=== PATIENT | male | born 1980 | race Caucasian/White ===

== ENCOUNTER 2021-05-30 16:34 | Inpatient (IN) | payer OTHER ==
[~2021-05-30] VITALS: Ht 172.7 cm; Wt 77.5 kg
[2021-05-30 18:13] LABS: BASOPHILS % (AUTO) 0.7 % (0.0-2.0); EOSINOPHILS % (AUTO) 2.6 % (1.0-6.0); HEMATOCRIT 44.1 % (41-53); HEMOGLOBIN 14.9 g/dL (13.5-17.5); LYMPHOCYTES # (AUTO) 2.6 K/uL (1.0-4.8); LYMPHOCYTES % (AUTO) 28.5 % (22.0-44.0); MEAN CORPUSCULAR HEMOGLOBIN 31.9 pg (26.0-34.0); MEAN CORPUSCULAR HGB CONC 33.8 G/dL (31.0-37.0); MEAN CORPUSCULAR VOLUME 94 fL (80-100); MONOCYTES # (AUTO) 0.7 K/uL (0.1-1.0); MONOCYTES % (AUTO) 7.3 % (2.0-9.0); NEUTROPHILS # (AUTO) 5.6 K/uL (1.8-7.7); NEUTROPHILS % (AUTO) 60.9 % (40.0-70.0); PLATELET COUNT (AUTO) 449 K/uL (150-450); RED BLOOD CELL COUNT(AUTO) 4.67 MIL/uL (4.50-5.90); RED CELL DISTRIBUTION WIDTH 13.6 % (11.5-14.5)
[2021-05-30 18:24] LABS: ANION GAP 6 mmol/L (8-16); CALCIUM, TOTAL 9.1 mg/dL (8.8-10.5); CARBON DIOXIDE 28 mmol/L (22-29); CHLORIDE 105 mmol/L (98-107); CREATININE 0.82 mg/dL (0.60-1.30); GLOMERULAR FILTR. RATE CALC > 60 mL/min (>60); GLUCOSE,RANDOM 99 mg/dL (70-110); POTASSIUM 3.6 mmol/L (3.5-5.1); SODIUM SERUM 139 mmol/L (136-145); UREA NITROGEN, BLOOD 12 mg/dL (7-18)
[2021-05-30 18:31] LABS: ALANINE AMINOTRANSFERASE 46 U/L (12-78); ALBUMIN 3.7 g/dL (3.4-5.0); ALKALINE PHOSPHATASE 113 U/L (46-116); ASPARTATE AMINOTRANSFERASE 19 U/L (15-37); BILIRUBIN,TOTAL 0.4 mg/dL (0.1-1.0); TOTAL PROTEIN, SERUM 8.3 g/dL (6.4-8.2)
[2021-05-30 20:26] LABS: COVID AG,FIA SOURCE NASOPHARYNGEAL
[2021-05-30] MEDS ORDERED: LORazepam 2 MG/ML VIAL IVP PRN (20:30)
[2021-05-30] MEDS ORDERED: ONDANSETRON HCL 4 MG/2 ML VIAL IVP PRN (20:30)
[2021-05-30] MEDS ORDERED: ACETAMINOPHEN 325 MG TABLET PO PRN (20:30)
[2021-05-30] MEDS ORDERED: 0.9% SODIUM CHLORIDE 10 ML SYRINGE IVP PRN (20:30)
[2021-05-30 20:59] LABS: PHENYTOIN (DILANTIN) 10.5 mcg/mL (10.0-20.0)
[2021-05-30] MEDS: LevETIRAcetam 500 MG TABLET PO SCH (21:15)
[2021-05-30] MEDS: PHENYTOIN 100 MG/4 ML SUSPENSION UDCUP PO SCH (21:15)
[2021-05-30 22:15] VITALS: BP 105/69
[2021-05-30 23:56] VITALS: BP 108/59
[2021-05-31 04:50] VITALS: BP 102/69
[2021-05-31 07:19] VITALS: BP 117/73
[2021-05-31 08:03] LABS: BASOPHILS % (AUTO) 0.7 % (0.0-2.0); EOSINOPHILS % (AUTO) 5.3 % (1.0-6.0); HEMOGLOBIN 15.2 g/dL (13.5-17.5); LYMPHOCYTES # (AUTO) 2.3 K/uL (1.0-4.8); LYMPHOCYTES % (AUTO) 27.2 % (22.0-44.0); MEAN CORPUSCULAR HEMOGLOBIN 31.5 pg (26.0-34.0); MEAN CORPUSCULAR HGB CONC 33.8 G/dL (31.0-37.0); MEAN CORPUSCULAR VOLUME 93 fL (80-100); MONOCYTES # (AUTO) 0.6 K/uL (0.1-1.0); MONOCYTES % (AUTO) 7.7 % (2.0-9.0); NEUTROPHILS # (AUTO) 4.9 K/uL (1.8-7.7); NEUTROPHILS % (AUTO) 59.1 % (40.0-70.0); PLATELET COUNT (AUTO) 407 K/uL (150-450); RED BLOOD CELL COUNT(AUTO) 4.82 MIL/uL (4.50-5.90); RED CELL DISTRIBUTION WIDTH 13.4 % (11.5-14.5)
[2021-05-31 08:26] LABS: ALANINE AMINOTRANSFERASE 53 U/L (12-78); ALBUMIN 3.6 g/dL (3.4-5.0); ALKALINE PHOSPHATASE 112 U/L (46-116); ANION GAP 8 mmol/L (8-16); ASPARTATE AMINOTRANSFERASE 21 U/L (15-37); BILIRUBIN,TOTAL 0.5 mg/dL (0.1-1.0); CALCIUM, TOTAL 8.7 mg/dL (8.8-10.5); CARBON DIOXIDE 28 mmol/L (22-29); CHLORIDE 103 mmol/L (98-107); CREATININE 0.83 mg/dL (0.60-1.30); GLOMERULAR FILTR. RATE CALC > 60 mL/min (>60); GLUCOSE,RANDOM 98 mg/dL (70-110); POTASSIUM 3.7 mmol/L (3.5-5.1); SODIUM SERUM 139 mmol/L (136-145); TOTAL PROTEIN, SERUM 8.2 g/dL (6.4-8.2); UREA NITROGEN, BLOOD 12 mg/dL (7-18)
[2021-05-31] MEDS: LevETIRAcetam 500 MG TABLET PO SCH (09:00)
[2021-05-31] MEDS ORDERED: ACETAMINOPHEN 325 MG TABLET PO PRN (09:45)
[2021-05-31] MEDS ORDERED: ZOLPIDEM TARTRATE 5 MG TABLET PO PRN (09:45)
[2021-05-31 10:50] VITALS: BP 106/77
[2021-05-31] MEDS: PHENYTOIN 100 MG/4 ML SUSPENSION UDCUP PO SCH ×2 (11:22→20:10)
[2021-05-31 14:58] VITALS: BP 116/76
[2021-05-31] MEDS: HEPARIN SODIUM,PORCINE 5,000 UNITS/ML VIAL SQ SCH (16:53)
[2021-05-31 19:45] VITALS: BP 119/79
[2021-05-31] MEDS: VALPROIC ACID 250 MG/5 ML SOLUTION UDCUP PO SCH (20:11)
[2021-05-31] MEDS: DOCUSATE SODIUM 100 MG CAPSULE PO SCH (20:11)
[2021-05-31 23:45] VITALS: BP 114/81
[2021-06-01 03:13] VITALS: BP 121/65
[2021-06-01] MEDS: HEPARIN SODIUM,PORCINE 5,000 UNITS/ML VIAL SQ SCH ×3 (08:00→16:00)
[2021-06-01 08:02] VITALS: BP 109/76
[2021-06-01] MEDS: DOCUSATE SODIUM 100 MG CAPSULE PO SCH ×3 (08:38→22:17)
[2021-06-01] MEDS: PHENYTOIN 100 MG/4 ML SUSPENSION UDCUP PO SCH ×2 (08:39→22:17)
[2021-06-01] MEDS: FAMOTIDINE 20 MG TABLET PO SCH (08:39)
[2021-06-01] MEDS: VALPROIC ACID 250 MG/5 ML SOLUTION UDCUP PO SCH ×3 (08:39→22:17)
[2021-06-01 12:10] VITALS: BP 114/77
[2021-06-01 16:00] VITALS: BP 134/84
[2021-06-01] MEDS ORDERED: ONDANSETRON HCL 4 MG/2 ML VIAL IVP PRN (16:30)
[2021-06-01 19:17] VITALS: BP 127/76
[2021-06-01 23:12] VITALS: BP 116/77
[2021-06-02 04:51] VITALS: BP 124/83
[2021-06-02 07:25] VITALS: BP 106/67
[2021-06-02] MEDS: HEPARIN SODIUM,PORCINE 5,000 UNITS/ML VIAL SQ SCH ×3 (08:00→16:00)
[2021-06-02] MEDS: DOCUSATE SODIUM 100 MG CAPSULE PO SCH ×2 (08:48→20:05)
[2021-06-02] MEDS: VALPROIC ACID 250 MG/5 ML SOLUTION UDCUP PO SCH ×3 (08:49→20:10)
[2021-06-02] MEDS: PHENYTOIN 100 MG/4 ML SUSPENSION UDCUP PO SCH ×2 (08:49→20:05)
[2021-06-02] MEDS: FAMOTIDINE 20 MG TABLET PO SCH (08:49)
[2021-06-02 11:30] VITALS: BP 139/81
[2021-06-02 15:13] VITALS: BP 132/86
[2021-06-02 19:57] VITALS: BP 138/76
[2021-06-03 00:24] VITALS: BP 130/84
[2021-06-03 05:03] VITALS: BP 122/77
[2021-06-03 07:20] VITALS: BP 136/82
[2021-06-03] MEDS: HEPARIN SODIUM,PORCINE 5,000 UNITS/ML VIAL SQ SCH ×2 (08:53)
[2021-06-03] MEDS: FAMOTIDINE 20 MG TABLET PO SCH (08:53)
[2021-06-03] MEDS: DOCUSATE SODIUM 100 MG CAPSULE PO SCH (08:53)
[2021-06-03] MEDS: VALPROIC ACID 250 MG/5 ML SOLUTION UDCUP PO SCH (08:53)
[2021-06-03] MEDS: PHENYTOIN 100 MG/4 ML SUSPENSION UDCUP PO SCH (08:53)
[2021-06-03 10:35] VITALS: BP 130/82
== END 2021-06-03 14:15 | DRG 101 ==
LOC: EMS 16:39 → 5S 21:00
PROVIDERS: ADMIT Internal Medicine; ATTEND Internal Medicine
DX: G40.909 Epilepsy, unspecified, not intractable, without status epilepticus (principal); Z20.822 Contact with and (suspected) exposure to COVID-19; Z91.19 Patient's noncompliance with other medical treatment and regimen; I10 Essential (primary) hypertension; Z79.899 Other long term (current) drug therapy; Z88.0 Allergy status to penicillin
CPT/HCPCS: 70450; 80053; 80185; 85025; 87081; 92610; 99285; G0480; J1644; J2405